=== PATIENT | female | born 1970 | race Two or more races ===

== ENCOUNTER 2024-04-18 14:48 | Outpatient (RCR) | payer BC, SELFPAY ==
--- NOTE | 2024-04-18 15:13 | PTNOTE_ITS ---
PT OP Initial Eval Patient Information Outpatient Physical Therapy Treatment Date: 04/18/24 Visit Reasons: Left hip pain Medical Diagnosis: M25.552 M25.551 Treatment Dx #1: L glute pain Start of Care: 04/18/24 Date of Onset: 2 months ago Smoking Status Smoking Status: Never smoker Initial Assessment Subjective: Pt is 54 yr old khmer speaking female who reports L hip pain x2 months insidious onset that hasn't gone away. Increased pain with walking more than 10 mins and lifting things. She is not working now and HH chores increase pain. PMH: DM, HTN, palpitations Imaging: notes OA spurring Pt goal: to get rid of the pain Objective: L hip AROM: FB: 90 deg Abduction: 35 deg IR PROM: 10 deg with pain of superior glute ER PROM: 45 deg Trunk AROM: FB: to feet with superior glute pain Extension: pain of L/S L3-5 TTP: none of GT region, min/mod of superior glute major SLR: positive on L with glute pain same location as with hip movements Assessment: Pt presents with pain of the superior glute with hip IR and straight leg raising and trunk forward bending possibly consistent with referred pain from the L/S. The GT is not tender and pain of groin region typical of hip OA was not provoked today. Pt requires skilled therapy to meet goals and has fair rehab potential. Short Term and Supervisor Wet Pour Goals 1. Ind with HEP 2. Decreased pain with trunk FB and L LE SLR from mod to none 3. Pt will ambulate at least 20 minutes without glute pain Treatment Plan ? 1. Manual therapy ? 2. Therex ? 3. Modalities as indicated, moist heat, ice, estim Frequency and Duration: 2x a week for 6 weeks Certification Dates: 04/18/24 to 07/16/24 Procedure Charges OP PT Eval Mod Complex 30 minutes: Yes
== END 2024-04-20 23:59 | disposition home or self-care (01) ==
LOC: CPTX 14:48
PROVIDERS: PCP Registered Nurse Community Health; Referring Provider Registered Nurse Community Health; Visit Provider Registered Nurse Community Health
DX: M25.552 Pain in left hip (principal); M25.551 Pain in right hip; I10 Essential (primary) hypertension; E11.9 Type 2 diabetes mellitus without complications
CPT/HCPCS: 97162

== ENCOUNTER 2024-05-08 14:30 | Outpatient (RCR) | payer BC, SELFPAY ==
--- NOTE | 2024-04-24 08:56 | PT.ODAYNRPT ---
PT Outpatient Daily Note OP Daily Note Outpatient Physical Therapy Treatment Date: 04/23/24 Visit Reasons: LEFT HIP PAIN Subjective: Same as eval Objective: See F/S for therex Assessment: Low tissue irritability in L hip with therex Plan: Continue per POC Length of Time (minutes) of Treatment: 30 Minutes Procedure Charges Therapeutic Exercise 30 minutes: Yes
--- NOTE | 2024-04-25 17:43 | PT.ODAYNRPT ---
PT Outpatient Daily Note OP Daily Note Outpatient Physical Therapy Treatment Date: 04/25/24 Visit Reasons: LEFT HIP PAIN Subjective: The L superior glute hurts today Objective: See F/S for therex Assessment: Low tissue irritability in L hip with therex but L glute is mod TTP Plan: Continue per POC Length of Time (minutes) of Treatment: 30 Minutes Procedure Charges Therapeutic Exercise 30 minutes: Yes
--- NOTE | 2024-05-02 14:30 | PTNOTE_ITS ---
PT Outpatient Daily Note OP Daily Note Outpatient Physical Therapy Treatment Date: 05/02/24 Visit Reasons: LEFT HIP PAIN Subjective: Pt reports L mild L hip symptoms today. Objective: Please see flow sheet for ther ex list. 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 Plan: Continue with POC. Length of Time (minutes) of Treatment: 30 Minutes Procedure Charges Therapeutic Exercise 30 minutes: Yes
--- NOTE | 2024-05-04 14:29 | PT.ODAYNRPT ---
PT Outpatient Daily Note OP Daily Note Outpatient Physical Therapy Treatment Date: 05/04/24 Visit Reasons: LEFT HIP PAIN Subjective: No hip pain to report today. Objective: Please see flow sheet for ther ex list. Assessment: Added interventions completed with minimal pain and discomfort. Plan: Continue with POC. Length of Time (minutes) of Treatment: 30 Minutes Procedure Charges Therapeutic Exercise 30 minutes: Yes
--- NOTE | 2024-05-08 16:15 | PT.ODAYNRPT ---
PT Outpatient Daily Note OP Daily Note Outpatient Physical Therapy Treatment Date: 05/08/24 Visit Reasons: LEFT HIP PAIN Subjective: Pain in the L LE comes and goes Objective: See F/S for therex Assessment: Low tissue irritability in L hip with therex but L glute is mod TTP Plan: Continue per POC Length of Time (minutes) of Treatment: 30 Minutes Procedure Charges Therapeutic Exercise 30 minutes: Yes
== END 2024-05-18 23:59 | disposition home or self-care (01) ==
LOC: CPTX 14:30
PROVIDERS: PCP Registered Nurse Community Health; Referring Provider Registered Nurse Community Health; Visit Provider Registered Nurse Community Health
DX: M25.552 Pain in left hip (principal); M25.551 Pain in right hip; E11.9 Type 2 diabetes mellitus without complications; I10 Essential (primary) hypertension
CPT/HCPCS: 97110

== ENCOUNTER → 2024-10-09 | Outpatient (CLI) | payer MEDICAID, SELFPAY ==
--- NOTE | 2024-10-09 11:45 | XR_ITS ---
Examination: Screening digital mammography, bilateral Computer aided detection 3-D breast Tomosynthesis, bilateral Date and time of exam: October 09, 2024 1153 hours Compared to mammograms dating to May 22, 2015 Indication: Screening Technique: Nonmagnified MLO, CC views of the breasts to been obtained, reconstructed from 3-D Tomosynthesis images. R2 computer aided detection program utilized for evaluation of suspicious masses and/or abnormal calcifications. 3-D Tomosynthesis images obtained. Findings: Scattered areas of fibroglandular density Benign calcifications. No interval suspicious masses Impression: BI-RADS category II: Benign Findings. Recommend 1 year follow-up mammogram.
== END | disposition home or self-care (01) ==
PROVIDERS: PCP Registered Nurse Community Health; Referring Provider Registered Nurse Community Health; Visit Provider Registered Nurse Community Health
DX: Z12.31 Encounter for screening mammogram for malignant neoplasm of breast (principal); R92.323 Mammographic fibroglandular density, bilateral breasts; R92.1 Mammographic calcification found on diagnostic imaging of breast
CPT/HCPCS: 77063; 77067